=== PATIENT | male | born 1980 | race African-American/Black ===

== ENCOUNTER 2021-07-26 19:14 | Emergency (ER) | payer OTHER ==
[~2021-07-26] VITALS: Ht 188 cm; Wt 120.7 kg
[~2021-07-26 19:14] MED LIST: AMARYL2 MG PO; AMLODIPINE; COZAAR 25 MG TA25 M1 PO; FLEXERIL PO; HCTZ; HYDROCHLOROTHIA25 M2 PO; METFORMIN HCL500 MG PO; NAPROSYN500 MG PO; NORCO 5-325 TA1 EACH PO; NORVASC5 MG PO; PERCOCET 5-3251 EACH PO; TOBREX5 ML OPHTHALMIC; ZOFRAN ODT4 MG PO
[2021-07-26 22:24] VITALS: BP 156/92
== END 2021-07-26 22:25 | disposition home or self-care (01) ==
LOC: ER 19:14
PROVIDERS: Nurse Practitioner Family
DX: J06.9 Acute upper respiratory infection, unspecified (principal); Z20.822 Contact with and (suspected) exposure to COVID-19; I10 Essential (primary) hypertension; E11.9 Type 2 diabetes mellitus without complications; Z79.899 Other long term (current) drug therapy; Z88.8 Allergy status to other drugs, medicaments and biological substances